=== PATIENT | male | born 1960 | race Caucasian/White ===

== ENCOUNTER 2017-08-23 19:43 | Emergency (ER) | payer MEDICARE, BC ==
[2017-08-23 19:59] VITALS: TEMP 98.2
[2017-08-23] MEDS ORDERED: diphenhydrAMINE 50 MG/ML 1 ML VIAL IVP STA (20:21)
[2017-08-23] MEDS ORDERED: MORPHINE SULFATE 4 MG/ML SYRINGE IVP STA ×2 (20:21→22:20)
[2017-08-23] MEDS ORDERED: METOCLOPRAMIDE 5 MG/ML 2 ML VIAL IVP STA (20:21)
[2017-08-23] MEDS ORDERED: KETOROLAC 30 MG/ML 1 ML VIAL IVP STA (20:21)
[2017-08-23] MEDS ORDERED: SODIUM CHLORIDE 0.9% 1,000 ML IV ONE (20:22)
--- NOTE | 2017-08-23 20:29 | ED ---
General Adult HPI - General Chief complaint: Headache Stated complaint: pain and numbness in arms; headache; loss of visio Time Seen by Provider: 08/23/17 19:56 Source: patient, RN notes reviewed Mode of arrival: ambulatory Limitations: no limitations - History of Present Illness Initial comments: 56-year-old male presenting with chief complaint of occipital headache. Patient states he has been having headaches on and off for the past 3 weeks. His primary care physician is aware of this and he has had an outpatient MRI. He is uncertain of the results of this MRI. He states that he is having photophobia which is typical of his headaches over the past several weeks. He does complain of bilateral retro-orbital pain as well. He is taking 60 mg morphine twice daily with minimal improvement. He states today he developed some blurry vision, noted that his vision was quite hazy and white for. Time, this is resolving still states he has some mild blurry vision. He also complains of pain and weakness in both of his upper extremities. He has history of chronic low back pain. - Related Data Home Medications Medication Instructions Recorded Confirmed Albuterol Sulfate [Proair Hfa] 1 - 2 puff INHALATION RT-Q6H PRN 08/23/17 Carisoprodol [Soma] 350 mg PO BID PRN 08/23/17 08/23/17 Fluticasone/Salmeterol [Advair 1 puff INHALATION RT-BID 08/23/17 08/23/17 250-50 Diskus] Lubiprostone [Amitiza] 24 mcg PO BID 08/23/17 08/23/17 Morphine Sulfate [Ms Contin] 60 mg PO BID 08/23/17 08/23/17 Oxymorphone HCl [Opana] 10 mg PO Q4HR PRN 08/23/17 08/23/17 Previous Rx's Medication Instructions Recorded Ibuprofen [Motrin] 600 mg PO Q8HR PRN #24 tab 08/23/17 Allergies Allergy/AdvReac Type Severity Reaction Status Date / Time No Known Allergies Allergy Verified 08/23/17 19:57 Review of Systems ROS Statement: Those systems with pertinent positive or pertinent negative responses have been documented in the HPI. ROS Other: All systems not noted in ROS Statement are negative. Past Medical History History of Any Multi-Drug Resistant Organisms: None Reported Past Psychological History: No Psychological Hx Reported Smoking Status: Current every day smoker Past Alcohol Use History: Occasional Past Drug Use History: Unable to Obtain General Exam Limitations: no limitations General appearance: alert, in no apparent distress Head exam: Present: atraumatic, normocephalic Eye exam: Present: normal appearance, PERRL, EOMI, other (Bilateral globes are soft). Absent: periorbital swelling, periorbital tenderness ENT exam: Present: normal exam Neck exam: Present: tenderness Respiratory exam: Present: normal lung sounds bilaterally. Absent: respiratory distress Cardiovascular Exam: Present: regular rate, normal rhythm GI/Abdominal exam: Present: soft. Absent: distended, tenderness Extremities exam: Present: normal inspection, normal capillary refill. Absent: pedal edema Back exam: Present: paraspinal tenderness (Cervical paraspinal tenderness) Neurological exam: Present: alert, oriented X3, CN II-XII intact. Absent: motor sensory deficit Psychiatric exam: Present: normal affect, normal mood Skin exam: Present: warm, dry, intact. Absent: cyanosis, diaphoretic Course Vital Signs 08/23/17 08/23/17 08/23/17 19:57 21:59 22:42 Temperature 98.2 F Pulse Rate 99 60 62 Respiratory 18 16 16 Rate Blood Pressure 190/88 150/90 140/85 O2 Sat by Pulse 98 97 98 Oximetry Medical Decision Making - Medical Decision Making 56-year-old male presenting with severe headache. Patient has been dealing with headaches for the past 3 weeks. This is similar in character, however he' s been unable to get in to see a neurologist. Patient's neurologic examination is nonfocal. Laboratory studies are obtained, including CBC and CMP. His are within normal limits. Head CT is negative for acute renal hemorrhage or mass effect. Patient has had outpatient MRI. He will follow-up with his primary care physician regarding these results. CT cervical spine is obtained, this does show distal disease of C5 and C6 with foraminal narrowing. On reevaluation , patient is feeling much better. Headache significantly improved. He will prefer to go home and rest. He would like outpatient neurology follow-up. This is provided for the patient. - Lab Data Result diagrams: 08/23/17 20:31 08/23/17 20:31 Lab Results 08/23/17 08/23/17 Range/Units 20:31 20:31 WBC 8.9 (3.8-10.6) k/uL RBC 4.38 (4.30-5.90) m/uL Hgb 14.0 (13.0-17.5) gm/dL Hct 39.9 (39.0-53.0) % MCV 91.0 (80.0-100.0) fL MCH 31.9 (25.0-35.0) pg MCHC 35.0 (31.0-37.0) g/dL RDW 13.0 (11.5-15.5) % Plt Count 281 (150-450) k/uL Neutrophils % 54 % Lymphocytes % 36 % Monocytes % 6 % Eosinophils % 2 % Basophils % 1 % Neutrophils # 4.8 (1.3-7.7) k/uL Lymphocytes # 3.2 (1.0-4.8) k/uL Monocytes # 0.5 (0-1.0) k/uL Eosinophils # 0.2 (0-0.7) k/uL Basophils # 0.1 (0-0.2) k/uL Sodium 140 (137-145) mmol/L Potassium 3.9 (3.5-5.1) mmol/L Chloride 105 (98-107) mmol/L Carbon Dioxide 27 (22-30) mmol/L Anion Gap 8 mmol/L BUN 12 (9-20) mg/dL Creatinine 0.88 (0.66-1.25) mg/dL Est GFR (MDRD) Af Amer >60 (>60 ml/min/1.73 sqM) Est GFR (MDRD) Non-Af >60 (>60 ml/min/1.73 sqM) Glucose 88 (74-99) mg/dL Calcium 9.2 (8.4-10.2) mg/dL Total Bilirubin 0.6 (0.2-1.3) mg/dL AST 24 (17-59) U/L ALT 37 (21-72) U/L Alkaline Phosphatase 59 (38-126) U/L Total Protein 6.4 (6.3-8.2) g/dL Albumin 4.0 (3.5-5.0) g/dL Disposition Clinical Impression: Headache Disposition: HOME SELF-CARE Condition: Good Instructions: General Headache (ED) Prescriptions: Ibuprofen [Motrin] 600 mg PO Q8HR PRN #24 tab PRN Reason: Pain Referrals: Nonstaff,Physician [Primary Care Provider] - 1-2 days Autumn Song MD [STAFF PHYSICIAN] - 1-2 days Time of Disposition: 23:29
[2017-08-23 20:50] LABS: Basophils # (A) 0.1 k/uL (0-0.2); Basophils % (A) 1 %; Eosinophils # (A) 0.2 k/uL (0-0.7); Eosinophils % (A) 2 %; HCT 39.9 % (39.0-53.0); Lymphocytes # (A) 3.2 k/uL (1.0-4.8); Lymphocytes % (A) 36 %; MCH 31.9 pg (25.0-35.0); Mean Platelet Volume 6.9; Monocytes # (A) 0.5 k/uL (0-1.0); Monocytes % (A) 6 %; Neutrophils # (A) 4.8 k/uL (1.3-7.7); Neutrophils % (A) 54 %; Platelet Count 281 k/uL (150-450); RBC 4.38 m/uL (4.30-5.90); WBC 8.9 k/uL (3.8-10.6)
[2017-08-23 21:00] LABS: ALT 37 U/L (21-72); AST 24 U/L (17-59); Alkaline Phosphatase 59 U/L (38-126); Anion Gap 8 mmol/L; Blood Urea Nitrogen 12 mg/dL (9-20); Calcium 9.2 mg/dL (8.4-10.2); Carbon Dioxide 27 mmol/L (22-30); Chloride 105 mmol/L (98-107); Glucose 88 mg/dL (74-99); Potassium 3.9 mmol/L (3.5-5.1); Sodium 140 mmol/L (137-145); Total Bilirubin 0.6 mg/dL (0.2-1.3); Total Protein 6.4 g/dL (6.3-8.2)
--- NOTE | 2017-08-23 21:33 | CT ---
EXAMINATION TYPE: CT brain víctor wo con DATE OF EXAM: 08/23/2017 COMPARISON: NONE HISTORY: Head and neck pain without injury. Visual disturbance and weakness CT DLP: 1495.1 mGycm, Automated exposure control for dose reduction was used. CONTRAST: Patient injected with 0 mL of Omnipaque 350. CT of the brain is performed utilizing 3 mm thick sections through the posterior fossa and 3 mm thick sections through the remaining calvarium. Study is performed within 24 hours of arrival to the hospital. No abnormal hyperdensity is present to suggest an acute intracranial hemorrhage. No mass lesion is evident. No acute infarcts are evident. Ventricles and sulci are appropriate for the patient age. There is air-fluid level within the left maxillary sinus. Correlate for left acute maxillary sinusiti s. Remaining paranasal sinuses are clear. There is been a right mastoidectomy. Left mastoid air cells are clear. No acute fractures are evident. IMPRESSIONS: 1. Normal CT brain. CT cervical spine. COMPARISON: None CT of the cervical spine is performed in the axial plane at 2 mm thick sections. Reconstructed image s in the coronal, and sagittal plane are reviewed on the computer. No acute fractures are evident. There is straightening of the cervical spine in the lateral projection. There is loss of disc height C5-6. Endplate spurring and uncovertebral joint hypertrophy are present. There is severe left and moderate right foraminal stenosis. There is some moderate anterior thecal s ac compression. Mild foraminal narrowing is present C6-7 from uncovertebral joint hypertrophy. Vertebral body heights are preserved. No spinal canal stenosis is evident. No neural foraminal stenosis is evident. IMPRESSIONS: 1. Degenerative disc changes C5-6 with foraminal narrowing C5-6 and to a lesser degree C6-7.
[2017-08-23 22:00] VITALS: RESP 16
[2017-08-23] MEDS ORDERED: DIAZEPAM 5 MG/ML 2 ML INJ IVP STA (22:20)
[2017-08-23 23:42] VITALS: BP 116/66; PULSE 57
== END 2017-08-23 23:42 | disposition home or self-care (01) ==
LOC: EC 19:43
DX: R51 Headache (principal); H53.149 Visual discomfort, unspecified; H57.13 Ocular pain, bilateral; R53.1 Weakness; M79.601 Pain in right arm; M79.602 Pain in left arm; M48.02 Spinal stenosis, cervical region; M54.5 Low back pain; G89.29 Other chronic pain; Z79.51 Long term (current) use of inhaled steroids; Z79.891 Long term (current) use of opiate analgesic; Z79.899 Other long term (current) drug therapy
CPT/HCPCS: 36415; 80053; 85025; 72125; 70450; 99284; 96374; 96375 ×4; 96376; 96361; J2270; J1200; J2765; J3360; J1885

== ENCOUNTER 2017-08-26 18:09 | Emergency (ER) | payer BC, MEDICARE ==
[2017-08-26 18:21] VITALS: RESP 18
[2017-08-26] MEDS ORDERED: KETOROLAC 30 MG/ML 1 ML VIAL IVP STA (18:36)
[2017-08-26] MEDS ORDERED: DIAZEPAM 5 MG/ML 2 ML INJ IVP STA (18:36)
[2017-08-26] MEDS ORDERED: diphenhydrAMINE 50 MG/ML 1 ML VIAL IVP STA (18:37)
[2017-08-26] MEDS ORDERED: METOCLOPRAMIDE 5 MG/ML 2 ML VIAL IVP STA (18:37)
--- NOTE | 2017-08-26 18:43 | ED ---
Headache HPI - General Chief Complaint: Headache Stated Complaint: Headache Time Seen by Provider: 08/26/17 18:23 Source: RN notes reviewed, old records reviewed Mode of arrival: ambulatory Limitations: no limitations - History of Present Illness Initial Comments: 56-year-old male presenting with headache. Patient states the headache is occipital in nature and radiates to his eyes. Accompanied by upper extremity weakness, photophobia, BUE weakness, and nausea. Patient states he was seen here on 08/23, and whatever he was given controlled his TOLEDO. He states he awoke the next morning and it returned. He stated he had an MRI that showed disc disease with spinal nerve compression, which his primary care physician thinks is the source of his TOLEDO. He states the symptoms with this current TOLEDO are the same as his chronic one. He has been taking his prescribed medications without relief. - Related Data Home Medications Medication Instructions Recorded Confirmed Albuterol Sulfate [Proair Hfa] 1 - 2 puff INHALATION RT-Q6H PRN 08/23/17 Carisoprodol [Soma] 350 mg PO BID PRN 08/23/17 08/26/17 Fluticasone/Salmeterol [Advair 1 puff INHALATION RT-BID 08/23/17 08/26/17 250-50 Diskus] Lubiprostone [Amitiza] 24 mcg PO BID 08/23/17 08/26/17 Morphine Sulfate [Ms Contin] 60 mg PO BID 08/23/17 08/26/17 Oxymorphone HCl [Opana] 10 mg PO Q4HR PRN 08/23/17 08/26/17 Previous Rx's Medication Instructions Recorded Ibuprofen [Motrin] 600 mg PO Q8HR PRN #24 tab 08/23/17 Metoclopramide HCl [Reglan] 10 mg PO QID PRN #15 tablet 08/26/17 diphenhydrAMINE [Benadryl] 50 mg PO TID #30 capsule 08/26/17 Allergies Allergy/AdvReac Type Severity Reaction Status Date / Time No Known Allergies Allergy Verified 08/26/17 18:50 Review of Systems ROS Statement: Those systems with pertinent positive or pertinent negative responses have been documented in the HPI. ROS Other: All systems not noted in ROS Statement are negative. Constitutional: Denies: fever, chills Eyes: Reports: eye pain. Denies: vision change Respiratory: Denies: cough, dyspnea Cardiovascular: Denies: chest pain, palpitations Gastrointestinal: Reports: nausea. Denies: abdominal pain, vomiting (neck pain) Skin: Denies: rash, lesions Neurological: Reports: headache, weakness. Denies: abnormal gait, vertigo Past Medical History Past Medical History: No Reported History History of Any Multi-Drug Resistant Organisms: None Reported Past Surgical History: Back Surgery, Tonsillectomy Additional Past Surgical History / Comment(s): left hand surgery, brain tumor removed Past Psychological History: No Psychological Hx Reported Smoking Status: Current every day smoker Past Alcohol Use History: Occasional Past Drug Use History: Marijuana General Exam Limitations: no limitations General appearance: alert (uncomfortable appearing ) Head exam: Present: atraumatic, normocephalic Eye exam: Present: normal appearance, PERRL, EOMI. Absent: scleral icterus, conjunctival injection, nystagmus Neck exam: Present: full ROM. Absent: tenderness Respiratory exam: Present: normal lung sounds bilaterally Cardiovascular Exam: Present: regular rate, normal rhythm, normal heart sounds. Absent: bradycardia, tachycardia GI/Abdominal exam: Present: soft. Absent: distended, tenderness, guarding Extremities exam: Present: full ROM Neurological exam: Present: alert, oriented X3. Absent: abnormal gait, motor sensory deficit Psychiatric exam: Present: normal affect, normal mood Skin exam: Present: warm, dry (clubbing of fingernails ) Course Vital Signs 08/26/17 18:17 Temperature 98.8 F Pulse Rate 82 Respiratory 18 Rate Blood Pressure 171/91 O2 Sat by Pulse 100 Oximetry Medical Decision Making - Medical Decision Making 56-year-old male presenting with headache. This exam the patient is awake, alert, appears and uncomfortable. VSS. Patient denies new symptoms with TOLEDO. CT head and cervical spine on 08/23 showed degenerative disc disease of C5-C6 with forminal narrowing. His CT head was negative and his laboratory workup was unremarkable. 1957 On reevaluation the patient was sleeping. When he awoke he stated his TOLEDO had resolved. He was offered admission but declined. No further emergent workup indicated. The patient was given return to ED instructions. They were instructed to follow up with their primary care provider. Stable for discharge at this time. Disposition Clinical Impression: Cervico-occipital neuralgia, Headache Disposition: HOME SELF-CARE Condition: Good Additional Instructions: Return to ED if unable to control the symptoms at home, you have new weakness of an extremity, vision change, or trouble controlling your bowels or bladder. Stop taking Relgan if you develop swelling of the face or lips, hallucinations, suicidal thoughts, depression, have involuntary movements of face and/or jaw. Prescriptions: diphenhydrAMINE [Benadryl] 50 mg PO TID #30 capsule Metoclopramide HCl [Reglan] 10 mg PO QID PRN #15 tablet PRN Reason: headache Referrals: Nonstaff,Physician [Primary Care Provider] - 1-2 days
[2017-08-26 20:35] VITALS: BP 140/93; PULSE 63; TEMP 97.6
== END 2017-08-26 20:35 | disposition home or self-care (01) ==
LOC: EC 18:09
DX: M54.81 Occipital neuralgia (principal); M62.81 Muscle weakness (generalized); R11.0 Nausea; F17.200 Nicotine dependence, unspecified, uncomplicated; Z86.011 Personal history of benign neoplasm of the brain; Z79.891 Long term (current) use of opiate analgesic; Z79.899 Other long term (current) drug therapy; Z79.51 Long term (current) use of inhaled steroids
CPT/HCPCS: 99283; 96374; 96375 ×3; J1200; J2765; J3360; J1885

== ENCOUNTER 2017-09-16 14:56 | Emergency (ER) | payer MEDICARE ==
[2017-09-16] MEDS ORDERED: METOCLOPRAMIDE 5 MG/ML 2 ML VIAL IVP STA (17:01)
[2017-09-16] MEDS ORDERED: KETOROLAC 30 MG/ML 1 ML VIAL IVP STA (17:01)
[2017-09-16] MEDS ORDERED: SODIUM CHLORIDE 0.9% 1,000 ML IV STA (17:01)
[2017-09-16] MEDS ORDERED: diphenhydrAMINE 50 MG/ML 1 ML VIAL IVP STA (17:01)
[2017-09-16] MEDS ORDERED: DIAZEPAM 5 MG TAB PO STA (17:02)
[2017-09-16] MEDS ORDERED: ORPHENADRINE 30 MG/ML 2 ML VIAL IVP STA (17:02)
--- NOTE | 2017-09-16 17:28 | ED ---
Headache HPI - General Chief Complaint: Headache Stated Complaint: Headache Time Seen by Provider: 09/16/17 16:11 Source: RN notes reviewed, old records reviewed Mode of arrival: ambulatory Limitations: no limitations - History of Present Illness Initial Comments: This is a 56-year-old male presents emergency department today she complaint of posterior neck pain and headache. Patient reports that he's been having this pain intermittently for the past few months. He states that he's had MRIs and was told that he has a pinched nerve. He states that the heat today he woke up with this pain is more severe. He has been on his by mouth morphine and Soma from his primary care provider. He states that helps with his back pain but does not help with his headache. He reports that he has had multiple scans and MRIs since since these onset of the headache. Patient reports no fever or chills. No nausea or vomiting or chest pain. Headache is worse with bright lights and loud noises. - Related Data Home Medications Medication Instructions Recorded Confirmed Albuterol Sulfate [Proair Hfa] 1 - 2 puff INHALATION RT-Q6H PRN 08/23/17 Carisoprodol [Soma] 350 mg PO QID PRN 08/23/17 09/16/17 Fluticasone/Salmeterol [Advair 1 puff INHALATION RT-BID 08/23/17 09/16/17 250-50 Diskus] Lubiprostone [Amitiza] 24 mcg PO BID 08/23/17 09/16/17 Morphine Sulfate [Ms Contin] 60 mg PO BID 08/23/17 09/16/17 Oxymorphone HCl [Opana] 10 mg PO Q4HR PRN 08/23/17 09/16/17 Multivitamins, Thera [Multivitamin 1 tab PO DAILY 09/16/17 09/16/17 (formulary)] diphenhydrAMINE [Benadryl] 50 mg PO TID PRN 09/16/17 09/16/17 Previous Rx's Medication Instructions Recorded Ibuprofen [Motrin] 600 mg PO Q8HR PRN #24 tab 08/23/17 Metoclopramide HCl [Reglan] 10 mg PO QID PRN #15 tablet 08/26/17 Dexamethasone 0.75 mg PO DAILY #12 tab 09/16/17 Diazepam [Valium] 5 mg PO TID #12 tab 09/16/17 Metoclopramide HCl [Reglan] 10 mg PO TID #15 tablet 09/16/17 diphenhydrAMINE HCL [Benadryl] 25 mg PO TID #20 tab 09/16/17 Allergies Allergy/AdvReac Type Severity Reaction Status Date / Time No Known Allergies Allergy Verified 09/16/17 16:11 Review of Systems ROS Statement: Those systems with pertinent positive or pertinent negative responses have been documented in the HPI. ROS Other: All systems not noted in ROS Statement are negative. Past Medical History Past Medical History: No Reported History Additional Past Medical History / Comment(s): chronic back pain- on morphine History of Any Multi-Drug Resistant Organisms: None Reported Past Surgical History: Back Surgery, Tonsillectomy Additional Past Surgical History / Comment(s): left hand surgery, brain tumor removed Past Psychological History: No Psychological Hx Reported Smoking Status: Current every day smoker Past Alcohol Use History: Occasional Past Drug Use History: Marijuana General Exam - General Exam Comments Initial Comments: 56-year-old male. No acute distress. Limitations: no limitations General appearance: alert, in no apparent distress Head exam: Present: atraumatic, normocephalic, normal inspection Eye exam: Present: normal appearance, PERRL, EOMI. Absent: scleral icterus, conjunctival injection, periorbital swelling ENT exam: Present: normal exam, mucous membranes moist Neck exam: Present: normal inspection, tenderness (Over posterior cervical spine.). Absent: meningismus, lymphadenopathy Respiratory exam: Present: normal lung sounds bilaterally. Absent: respiratory distress, wheezes, rales, rhonchi, stridor Cardiovascular Exam: Present: regular rate, normal rhythm, normal heart sounds. Absent: systolic murmur, diastolic murmur, rubs, gallop, clicks GI/Abdominal exam: Present: soft, normal bowel sounds. Absent: distended, tenderness, guarding, rebound, rigid Extremities exam: Present: normal inspection, full ROM, normal capillary refill. Absent: tenderness, pedal edema, joint swelling, calf tenderness Back exam: Present: normal inspection Neurological exam: Present: alert, oriented X3, CN II-XII intact Psychiatric exam: Present: normal affect, normal mood Skin exam: Present: warm, dry, intact, normal color. Absent: rash Course Vital Signs 09/16/17 09/16/17 09/16/17 15:23 17:30 18:56 Temperature 98.3 F 98.0 F Pulse Rate 87 72 70 Respiratory 18 18 17 Rate Blood Pressure 117/78 158/102 126/76 O2 Sat by Pulse 98 97 98 Oximetry Disposition Clinical Impression: Cervico-occipital neuralgia, Headache Disposition: HOME SELF-CARE Condition: Good Instructions: Acute Headache (ED) Additional Instructions: Patient arrives to follow-up with primary care provider. Return to the emergency department. Prescriptions: Dexamethasone 0.75 mg PO DAILY #12 tab Diazepam [Valium] 5 mg PO TID #12 tab diphenhydrAMINE HCL [Benadryl] 25 mg PO TID #20 tab Metoclopramide HCl [Reglan] 10 mg PO TID #15 tablet Referrals: Nonstaff,Physician [Primary Care Provider] - 1-2 days Time of Disposition: 19:00
[2017-09-16 18:57] VITALS: BP 126/76; PULSE 70; RESP 17; TEMP 98
[2017-09-16] MEDS ORDERED: methylPREDNISolone SOD SUCCI 125 MG/2 ML VIAL IV STA (18:58)
[2017-09-16] MEDS ORDERED: MORPHINE SULFATE/PF 10MG/10ML VL IVP STA (18:58)
== END 2017-09-16 19:32 | disposition home or self-care (01) ==
LOC: EC 14:56
DX: M54.81 Occipital neuralgia (principal); M54.9 Dorsalgia, unspecified; G89.29 Other chronic pain; F17.200 Nicotine dependence, unspecified, uncomplicated; Z79.51 Long term (current) use of inhaled steroids; Z79.899 Other long term (current) drug therapy; Z79.891 Long term (current) use of opiate analgesic
CPT/HCPCS: 96361; 96374; 96375; 99284

== ENCOUNTER → 2017-10-14 | Outpatient (CLI) | payer MEDICARE ==
[2017-10-14 15:41] LABS: Basophils % (A) 0 %; Eosinophils # (A) 0.3 k/uL (0-0.7); Eosinophils % (A) 3 %; Lymphocytes # (A) 2.4 k/uL (1.0-4.8); Lymphocytes % (A) 31 %; MCHC 34.1 g/dL (31.0-37.0); Mean Platelet Volume 6.9; Monocytes # (A) 0.6 k/uL (0-1.0); Monocytes % (A) 8 %; Neutrophils # (A) 4.2 k/uL (1.3-7.7); Neutrophils % (A) 54 %; Platelet Count 247 k/uL (150-450); RDW 12.7 % (11.5-15.5); WBC 7.8 k/uL (3.8-10.6)
[2017-10-14 15:44] LABS: Appearance,Urine Clear (Clear); Bilirubin,Urine Negative (Negative); Blood,Urine Negative (Negative); Color,Urine Yellow; Glucose,Urine (UA) Negative (Negative); Ketones,Urine Negative (Negative); Leukocyte Esterase,Urine Negative (Negative); Nitrite,Urine Negative (Negative); PH, Urine 5.5 (5.0-8.0); Protein,Urine Negative (Negative); Specific Gravity,Urine 1.015 (1.001-1.035); Urobilinogen,Urine <2.0 mg/dL (<2.0)
--- NOTE | 2017-10-14 15:47 | XR ---
EXAMINATION TYPE: XR chest 2V DATE OF EXAM: 10/14/2017 COMPARISON: NONE HISTORY: Presurgical evaluation. TECHNIQUE: Frontal and lateral views of the chest are obtained. FINDINGS: There is no focal air space opacity, pleural effusion, or pneumothorax seen. The cardiac silhouette size is within normal limits. The osseous structures are intact. Multilevel mild degener ative changes of the thoracic spine are noted and of the acromio clavicular joints. Mild pulmonary hyperinflation and slight flattening of the diaphragms on the lateral image may relate to degree of inspiration or underlying COPD. Correlate with pulmonary function tests. IMPRESSION: No acute cardiopulmonary process.
[2017-10-14 15:55] LABS: ALT 22 U/L (21-72); AST 22 U/L (17-59); Albumin 4.1 g/dL (3.5-5.0); Alkaline Phosphatase 70 U/L (38-126); Anion Gap 12 mmol/L; Blood Urea Nitrogen 17 mg/dL (9-20); Calcium 9.6 mg/dL (8.4-10.2); Carbon Dioxide 27 mmol/L (22-30); Chloride 105 mmol/L (98-107); Cholesterol 207 mg/dL (<200); Glucose 100 mg/dL (74-99); HDL Cholesterol 42 mg/dL (40-60); LDL Cholesterol,Calculated 136 mg/dL (0-99); Potassium 5.4 mmol/L (3.5-5.1); Sodium 144 mmol/L (137-145); Total Bilirubin 0.3 mg/dL (0.2-1.3); Total Protein 6.6 g/dL (6.3-8.2); Triglycerides 146 mg/dL (<150)
[2017-10-14 16:23] LABS: PSA Annual Screen 3.91 ng/mL (0.00-4.00)
[2017-10-15 02:07] LABS: Hemoglobin A1C 5.3 % (4.0-6.0)
== END | disposition home or self-care (01) ==
LOC: LABWHC1 14:33
PROVIDERS: ATTEND Internal Medicine
DX: Z01.818 Encounter for other preprocedural examination (principal); E03.9 Hypothyroidism, unspecified; E29.1 Testicular hypofunction; R06.02 Shortness of breath; Z12.5 Encounter for screening for malignant neoplasm of prostate; Z79.899 Other long term (current) drug therapy
CPT/HCPCS: 80061; 80053; 84443; 85025; 81003; 84403; 87086; 83036; 71046; 93005; 36415; G0103

== ENCOUNTER → 2017-10-21 | Outpatient (CLI) | payer MEDICARE | END | disposition home or self-care (01) | LOC: LABWHC1 14:29 | PROVIDERS: ATTEND Neurological Surgery | DX: Z01.818 Encounter for other preprocedural examination (principal) | CPT/HCPCS: 86850; 86900; 86901 ==

== ENCOUNTER → 2018-12-01 | Outpatient (CLI) | payer MEDICARE ==
[2018-12-01 16:52] LABS: Basophils % (A) 0 %; Eosinophils % (A) 0 %; HCT 41.2 % (39.0-53.0); HGB 13.6 gm/dL (13.0-17.5); Lymphocytes # (A) 1.9 k/uL (1.0-4.8); Lymphocytes % (A) 15 %; MCH 31.6 pg (25.0-35.0); MCV 95.7 fL (80.0-100.0); Mean Platelet Volume 6.9; Monocytes # (A) 0.6 k/uL (0-1.0); Monocytes % (A) 5 %; Neutrophils # (A) 9.7 k/uL (1.3-7.7); Neutrophils % (A) 78 %; Platelet Count 276 k/uL (150-450); RBC 4.31 m/uL (4.30-5.90); RDW 13.1 % (11.5-15.5); WBC 12.4 k/uL (3.8-10.6)
[2018-12-01 23:52] LABS: African American GFR (CKD) 97.1 (60.0-200.0); Albumin 4.4 g/dL (3.80-4.90); Albumin/Globulin Ratio 2.75 (1.60-3.17); Anion Gap 7.9 mmol/L (4.00-12.00); Calcium 9.3 mg/dL (8.7-10.3); Carbon Dioxide 23.1 mmol/L (21.6-31.8); Globulin 1.6 g/dL (1.6-3.3); Total Bilirubin 0.4 mg/dL (0.2-1.2)
[2018-12-02 00:08] LABS: Hemoglobin A1C 4.7 % (4.0-6.0)
== END | disposition home or self-care (01) ==
LOC: LABWHC1 15:46
PROVIDERS: ATTEND Internal Medicine
DX: Z00.00 Encounter for general adult medical examination without abnormal findings (principal); E11.9 Type 2 diabetes mellitus without complications; E78.5 Hyperlipidemia, unspecified; Z12.5 Encounter for screening for malignant neoplasm of prostate; Z79.899 Other long term (current) drug therapy
CPT/HCPCS: 36415; 80053; 80061; 83036; 84153; 84443; 85025

== ENCOUNTER → 2021-01-02 | Outpatient (CLI) | payer MEDICARE ==
[2021-01-03 01:16] LABS: Basophils # (A) 0.04 X 10*3/uL (0.00-0.10); Basophils % (A) 0.5 %; Eosinophils # (A) 0.28 X 10*3/uL (0.04-0.35); Eosinophils % (A) 3.4 %; HCT 40.5 % (39.6-50.0); HGB 13.9 g/dL (13.0-17.0); Lymphocytes % (A) 32.8 %; MCH 32.6 pg (27.0-32.0); MCHC 34.3 g/dL (32.0-37.0); MCV 95.1 fL (80.0-97.0); Mean Platelet Volume 10.8 fL (9.5-12.2); Monocytes # (A) 0.71 X 10*3/uL (0.20-1.00); Monocytes % (A) 8.6 %; Neutrophils # (A) 4.48 X 10*3/uL (1.80-7.70); Neutrophils % (A) 54.5 %; Platelet Count 243 X 10*3/uL (140-440); RBC 4.26 X 10*6/uL (4.40-5.60); RDW 12.3 % (11.5-14.5); WBC 8.23 X 10*3/uL (4.50-10.00)
[2021-01-03 03:57] LABS: Hemoglobin A1C 5.4 % (4.0-6.0)
[2021-01-03 16:14] LABS: % Iron Saturation 27.24 (15.00-50.00); Albumin 4.4 g/dL (3.80-4.90); Albumin/Globulin Ratio 2.44 (1.60-3.17); Anion Gap 7.3 mmol/L (4.00-12.00); BUN/Creat Ratio 16.67 Ratio (12.00-20.00); Calcium 9.1 mg/dL (8.7-10.3); Carbon Dioxide 23.7 mmol/L (21.6-31.8); Chol/HDL Ratio 4.55; Globulin 1.8 g/dL (1.6-3.3); LDL Cholesterol,Calculated 98.2 mg/dL (0.0-131.0); Non-African American GFR(CKD) 93.2 (60.0-200.0); Potassium 4.2 mmol/L (3.5-5.5); Total Bilirubin 0.5 mg/dL (0.3-1.2); Total Protein 6.2 g/dL (6.2-8.2); VLDL Calculation 36.8 mg/dL (5.00-40.00)
[2021-01-03 16:21] LABS: Ferritin 50.7 ng/mL (22.0-322.0)
[2021-01-03 16:23] LABS: PSA Annual Screen 4.4 ng/mL (0.0-4.0)
== END | disposition home or self-care (01) ==
LOC: LABWHC1 15:10
PROVIDERS: ATTEND Internal Medicine
DX: Z00.00 Encounter for general adult medical examination without abnormal findings (principal); Z12.5 Encounter for screening for malignant neoplasm of prostate; Z13.1 Encounter for screening for diabetes mellitus; D50.8 Other iron deficiency anemias; E03.9 Hypothyroidism, unspecified; E11.9 Type 2 diabetes mellitus without complications; E78.5 Hyperlipidemia, unspecified; Z79.899 Other long term (current) drug therapy
CPT/HCPCS: 80061; 80053; 82607; 82728; 83540; 83550; 84443; 85025; 83036; 36415; G0103

== ENCOUNTER → 2022-11-19 | Outpatient (CLI) | payer MEDICARE | END | disposition home or self-care (01) | LOC: LABWHC1 15:03 | PROVIDERS: ATTEND Internal Medicine | DX: R97.20 Elevated prostate specific antigen [PSA] (principal) | CPT/HCPCS: 36415; 84153 ==

== ENCOUNTER → 2023-10-22 | Outpatient (CLI) | payer MEDICARE | END | disposition home or self-care (01) | LOC: LABWHC1 14:05 | PROVIDERS: ATTEND Internal Medicine | DX: C61 Malignant neoplasm of prostate (principal) | CPT/HCPCS: 36415; 84153 ==